=== PATIENT | female | born 1975 | race African-American/Black ===

== ENCOUNTER 2017-04-16 17:07 | Emergency (ER) | payer BC ==
[~2017-04-16] VITALS: Ht 154.9 cm; Wt 65.8 kg
[2017-04-16 17:13] VITALS: BP_SYST 123
--- NOTE | 2017-04-16 17:24 | NUR ---
Patient to ER bed 3 to gown for evaluation. Side rails up. Report given to Noble PATEL.
--- NOTE | 2017-04-16 17:28 | NUR ---
ER Dr. Johnson at bedside examining patient.
[2017-04-16] MEDS ORDERED: PREDNISONE 20 MG TABLET PO ONE (17:30)
[2017-04-16] MEDS ORDERED: DIPHENHYDRAMINE HCL 50 MG CAPSULE PO ONE (17:30)
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
--- NOTE | 2017-04-16 18:01 | NUR ---
Patient given written and verbal discharge instructions and verbalizes understanding. ER MD discussed with patient the results and treatment provided. Patient in stable condition. ID arm band removed. Rx of Keflex, and Prednisone given. Patient educated on pain management and to follow up with PMD. Pain Scale 2. Opportunity for questions provided and answered.
--- NOTE | 2017-04-16 18:01 | NUR ---
Patient given written and verbal discharge instructions and verbalizes understanding. ER MD discussed with patient the results and treatment provided. Patient in stable condition. ID arm band removed. Rx of Keflex, Prednisone given. Patient educated on pain management and to follow up with PMD. Pain Scale 0/10. Opportunity for questions provided and answered.
== END 2017-04-16 17:56 | disposition home or self-care (01) ==
LOC: SED 17:07
DX: L03.115 Cellulitis of right lower limb (principal); M25.561 Pain in right knee
CPT/HCPCS: 99283; J7512; Q0163

== ENCOUNTER 2020-07-26 08:43 | Emergency (ER) | payer BC ==
[~2020-07-26] VITALS: Ht 154.9 cm; Wt 74.4 kg
[2020-07-26 08:43] VITALS: BP_SYST 115
[2020-07-26 10:13] LABS: BASOPHILS % (AUTO) 0.5 % (0.0-2.0); EOSINOPHILS # (AUTO) 0.1 K/uL (0.0-0.4); EOSINOPHILS % (AUTO) 1.6 % (0.0-4.0); HEMATOCRIT 39.2 % (36-48); LYMPHOCYTES # (AUTO) 1.9 K/uL (1.0-5.5); LYMPHOCYTES % (AUTO) 44.3 % (20.5-51.5); MEAN CORPUSCULAR HEMOGLOBIN 30 pg (27-31); MEAN CORPUSCULAR HGB CONC 33 % (32-36); MEAN CORPUSCULAR VOLUME 90 fL (79.0-98.0); MONOCYTES # (AUTO) 0.3 K/uL (0.0-1.0); NEUTROPHILS % (AUTO) 45.6 % (40.0-70.0); PLATELET COUNT (AUTO) 211 K/uL (130-430); RED BLOOD CELL COUNT(AUTO) 4.35 MIL/uL (4.2-6.2); RED CELL DISTRIBUTION WIDTH 14.4 % (9.0-15.0); WHITE BLOOD COUNT (AUTO) 4.3 K/uL (4.8-10.8)
[2020-07-26] MEDS ORDERED: KETOROLAC TROMETHAMINE 60 MG/2 ML VIAL IM ONE (10:30)
[2020-07-26 10:31] LABS: CALCIUM 8.7 mg/dL (8.4-11.0); CREATININE 0.85 mg/dL (0.55-1.30); POTASSIUM 3.8 mmol/L (3.5-5.1)
[2020-07-26 10:37] LABS: ALBUMIN 3.9 g/dL (3.4-4.8); TOTAL BILIRUBIN 0.3 mg/dL (0.0-1.0)
[2020-07-26 12:48] VITALS: BP_SYST 130
== END 2020-07-26 12:52 | disposition home or self-care (01) ==
LOC: SED 08:43
DX: D25.9 Leiomyoma of uterus, unspecified (principal); R10.2 Pelvic and perineal pain
CPT/HCPCS: 36415; 74176; 76830; 76857; 80053; 81002; 81025; 83690; 85025; 96372; 99285; J1885